=== PATIENT | female | born 1990 | race Caucasian/White ===

== ENCOUNTER 2020-11-23 20:00 | Emergency (ER) | payer BC ==
[2020-11-23 20:29] VITALS: BP 135/86; PULSE 116; RESP 18; TEMP 98.6
[2020-11-23] MEDS ORDERED: DIPH,PERTUS(ACELL)TETVAC-LF 0.5 ML VIAL IM ONE (21:03)
[2020-11-23] MEDS ORDERED: LIDOCAINE 1% INJ 10MG/ML (20 ML MDV) SQ ONE (21:03)
[2020-11-23] MEDS ORDERED: IBUPROFEN 600 MG TAB PO STA (21:04)
--- NOTE | 2020-11-23 21:51 | XR ---
EXAMINATION TYPE: XR hand complete LT DATE OF EXAM: 11/23/2020 COMPARISON: NONE HISTORY: Pain TECHNIQUE: 3 views FINDINGS: Metacarpals appear intact. I see no fracture nor dislocation. The fingers are intact. IMPRESSION: Negative left hand exam. No fracture.
--- NOTE | 2020-11-23 21:52 | XR ---
EXAMINATION TYPE: XR forearm LT DATE OF EXAM: 11/23/2020 COMPARISON: NONE HISTORY: Pain TECHNIQUE: 2 views FINDINGS: There is soft tissue swelling of the forearm on the anterior aspect. I see no fracture nor dislocation. Radius and ulna appear intact. IMPRESSION: Soft tissue swelling. No fracture.
--- NOTE | 2020-11-23 22:39 | ED ---
Animal Bite HPI - General Chief Complaint: Animal Bite Stated Complaint: dog bite Time Seen by Provider: 11/23/20 20:54 Source: patient, RN notes reviewed Mode of arrival: ambulatory Limitations: no limitations - History of Present Illness Initial Comments: Patient is a 30-year-old female presenting to the emergency department with complaints of dog bite to her left and right forearms. Patient states she has 4 dogs of her own, they were starting to fight and she tried to separate them. She suffered most of her wounds on the left forearm, there is a few wounds on her right hand and right forearm. She is not up-to-date with her tetanus vaccine. She states all of her dogs are up-to-date with their rabies and other vaccines. There is some oozing from her wounds but no significant bleeding at this time. She is not on blood thinners. She has no injuries anywhere else. She states her overall pain is about a 5/10. She has no further complaints at this time. - Related Data Previous Rx's Medication Instructions Recorded Amoxicillin/Potassium Clav 1 tab PO BID 5 Days #10 tab 11/23/20 [Augmentin 875-125 Tablet] Allergies Allergy/AdvReac Type Severity Reaction Status Date / Time No Known Allergies Allergy Verified 11/23/20 20:30 Review of Systems ROS Statement: Those systems with pertinent positive or pertinent negative responses have been documented in the HPI. ROS Other: All systems not noted in ROS Statement are negative. Past Medical History Past Medical History: No Reported History History of Any Multi-Drug Resistant Organisms: None Reported Past Surgical History: Section Past Psychological History: Depression Smoking Status: Never smoker Past Alcohol Use History: None Reported Past Drug Use History: None Reported General Exam - General Exam Comments Initial Comments: GENERAL: Patient is well-developed and well-nourished. Patient is nontoxic and in no acute distress. HEAD: Atraumatic, normocephalic. EYES: Pupils equal round and reactive to light, extraocular movements intact, sclera anicteric, conjunctiva are normal. Eyelids were unremarkable. ENT: Moist mucous membranes. NECK: Normal range of motion, supple without lymphadenopathy or JVD. LUNGS: Unlabored respirations. Breath sounds clear to auscultation bilaterally and eq ual. No wheezes rales or rhonchi. HEART: Regular rate and rhythm without murmurs, rubs or gallops. MUSCULOSKELETAL: Normal extremities with adequate strength and normal range of motion, no pitting or edema. No clubbing or cyanosis. NEUROLOGICAL: Patient is alert and oriented x 3. SKIN: Warm, Dry, normal turgor. Patient has multiple dog bite wounds to the left forearm, there is a wound that is one centimeters in length, 4 other wounds approximately 0.5 cm in length. Patient also has a another single wound on the right forearm that is approximately 0.5 cm. There is some mild oozing from the wounds but no active bleeding. Limitations: no limitations Course Vital Signs 11/23/20 20:24 Temperature 98.6 F Pulse Rate 116 H Respiratory 18 Rate Blood Pressure 135/86 O2 Sat by Pulse 98 Oximetry Procedures - Laceration Laceration #1 Consent Obtained: verbal consent Indication: laceration Site: upper extremity (left forearm, dorsal aspect) Size (cm): 1 Description: linear Depth: simple, single layer Anesthetic Used: lidocaine 1% Anesthesia Technique: local infiltration Amount (mls): 2 Pre-repair: irrigated extensively Type of Sutures: nylon Size of Sutures: 5-0 Number of Sutures: 3 Technique: simple, interrupted Patient Tolerated Procedure: well Laceration #2 Consent Obtained: verbal consent Indication: laceration Site: upper extremity (left forearm, esqueda aspect) Size (cm): 0 (0.5cm) Description: linear Depth: simple, single layer Anesthetic Used: lidocaine 1% Anesthesia Technique: local infiltration Amount (mls): 1 Pre-repair: wound explored Type of Sutures: nylon Size of Sutures: 5-0 Number of Sutures: 4 Technique: simple, interrupted Patient Tolerated Procedure: well Additional Comments: Patient had 4 separate, 0.5 cm puncture wounds on the palmar aspect of the forearm, each required one suture to close. Total of 4 sutures. She tolerated procedure well. Laceration #3 Consent Obtained: verbal consent Indication: laceration Site: upper extremity (right forearm) Size (cm): 0 (0.5cm) Description: linear Depth: simple, single layer Anesthetic Used: lidocaine 1% Anesthesia Technique: local infiltration Amount (mls): 1 Pre-repair: irrigated extensively Type of Sutures: nylon Size of Sutures: 5-0 Number of Sutures: 1 Technique: simple, interrupted Patient Tolerated Procedure: well Medical Decision Making - Medical Decision Making Patient is a 30-year-old female here with dogbite wounds to her left and right forearms. These were her own dogs got into a fight and she tried to separate them. We did update her tetanus vaccine today. Her dogs are up-to-date with rabies and other vaccines. Patient's forearms were cleaned, we did suture multiple areas on the left forearm and one area on the right forearm. She was given ibuprofen for pain.. Sutures need to be removed in about 7-10 days. I recommended antibiotic ointment to the areas. I will also continue her on Augmentin. She is agreeable with plan to care and stable for discharge. Return parameters were discussed with her and she verbalized understanding. Case discussed with Dr. Dexter Disposition Clinical Impression: Dog bite of left forearm, Dog bite of right forearm Disposition: HOME SELF-CARE Condition: Stable Instructions (If sedation given, give patient instructions): Animal Bite (ED) Additional Instructions: Please return to the Emergency Department if symptoms worsen or any other concerns. Keep areas clean and dry. May keep covered at times. Take antibiotic as prescribed. Recommend ibuprofen for discomfort, you can also apply ice to the areas. Stitches need to be removed in 7-10 days. Prescriptions: Amoxicillin/Potassium Clav [Augmentin 875-125 Tablet] 1 tab PO BID 5 Days #10 tab Is patient prescribed a controlled substance at d/c from ED?: No Referrals: Nonstaff,Physician [Primary Care Provider] - 1-2 days Time of Disposition: 22:39
== END 2020-11-23 22:56 | disposition home or self-care (01) ==
LOC: EC 20:00
DX: S51.851A Open bite of right forearm, initial encounter (principal); S51.852A Open bite of left forearm, initial encounter; Z23 Encounter for immunization; W54.0XXA Bitten by dog, initial encounter
CPT/HCPCS: 73090; 73130; 90715; 12001; 90471; 99283; J2001